=== PATIENT | male | born 1945 | race Caucasian/White ===

== ENCOUNTER 2023-04-20 08:57 | Inpatient (IN) ==
[2023-04-20] MEDS: Albuterol/Ipratropium NEB.SOL (2.5/0.5 MG) 3 ML NEB.SOLN INH ONE (09:58)
[2023-04-20 10:16] LABS: ABS Basophils 0.1 10^3/uL (0.0-0.1); ABS Lymphocytes 0.8 10^3/uL (1.0-4.8); ABS Monocytes 1.2 10^3/uL (0.0-1.1); ABS Neutrophils 17.8 10^3/uL (1.5-7.6); ABS Nucleated RBC 0.01 10^3/ul; Eosinophil % 0.1 %; Hematocrit 36.7 % (38-53); Hemoglobin 11.9 g/dL (13.2-16.3); Lymphocyte % 4.2 %; Mean Corpuscular Hemoglobin 26.6 pg (27-33); Mean Corpuscular Hgb Conc 32.5 g/dL (31-36); Mean Corpuscular Volume 81.8 fL (80-97); Mean Platelet Volume 7.3 fL (7.5-11.2); Platelet Count 530 10^3/uL (150-450); Red Blood Count 4.48 10^6/uL (4.06-5.63); Red Cell Distribution Width 14.5 % (12-17); White Blood Count 19.9 10^3/uL (3.6-10.2)
[2023-04-20] MEDS: NS 0.9% 1000 ml BAG 1,000 ML IV ONE ×2 (10:17→12:17)
[2023-04-20 10:35] LABS: Albumin 3.5 g/dL (3.2-5.2); Albumin/Globulin Ratio 0.8 (1-3); C Reactive Protein 183.86 mg/L (<8.01); Calcium 9.1 mg/dL (8.6-10.3); Creatinine, Serum 1.84 mg/dL (0.67-1.17); Globulin 4.3 g/dL (2-4); Magnesium 1.5 mg/dL (1.9-2.7); Phosphorus 4.6 mg/dL (2.5-5.0); Potassium 5.3 mmol/L (3.5-5.0); Total Bilirubin 0.4 mg/dL (0.2-1.0); Total Protein 7.8 g/dL (6.4-8.9); eGFR CKD-EPI 37.1 (>60)
[2023-04-20 11:34] LABS: High Sensitivity Troponin 1 Hr 110 pg/mL (<20)
[2023-04-20] MEDS: cefTRIAXone 1 gm/50 mL D5W 1 GM/50 ML BAG IV ONE (12:17)
[2023-04-20] MEDS ORDERED: Dextrose 50% Syringe 50 ml 25 GM/50 ML SYRINGE IV PUSH PRN ×2 (13:13→17:27)
[2023-04-20] MEDS: Heparin DRIP 25,000 UNITS BAG 25,000 UNITS/250 ML BAG IV SCH (13:28)
[2023-04-20] MEDS: Heparin 5000 UNITS/ML 1 mL VIAL IV SCH (13:30)
[2023-04-20] MEDS: Magnesium Sulfate 2 gm BAG 2 GM/50 ML BAG IVPB ONE (13:34)
[2023-04-20] MEDS ORDERED: Albuterol/Ipratropium NEB.SOL (2.5/0.5 MG) 3 ML NEB.SOLN INH SCH ×2 (14:00→18:00)
[2023-04-20 14:15] LABS: Creatinine, Serum 1.72 mg/dL (0.67-1.17); eGFR CKD-EPI 40.2 (>60)
[2023-04-20] MEDS: methylPREDNISolone SOD SUCC 125 mg 2 ML VIAL IV ONE (14:53)
[2023-04-20] MEDS: Azithromycin 500 mg/250 ml NS 500 MG/250 ML BAG IVPB SCH (14:55)
[2023-04-20] MEDS: Albuterol/Ipratropium NEB.SOL (2.5/0.5 MG) 3 ML NEB.SOLN INH PRN (15:23)
[2023-04-20] MEDS: Lactated Ringers 1000 ml BAG 1,000 ML IV ONE (15:59)
[2023-04-20] MEDS ORDERED: Sulfur Hexaflouride MICROSPHR 25 MG VIAL ONE (16:03)
[2023-04-20 16:17] LABS: PCO2 Arterial 34 mmHg (35-45); PO2 Arterial 63 mmHg (80-100)
[2023-04-20] MEDS ORDERED: Dabigatran 150 mg CAP (NF) PO SCH (21:00)
[2023-04-20] MEDS: methylPREDNISolone SOD SUCC 40 mg/ml 1 ml VIAL IV SCH (21:37)
[2023-04-20] MEDS: Triamcinolone 0.025% OINT 15 GM TUBE TOPICAL SCH (21:41)
[2023-04-20] MEDS: Albuterol/Ipratropium NEB.SOL (2.5/0.5 MG) 3 ML NEB.SOLN INH SCH (21:59)
[2023-04-20] MEDS: Mometasone 220 MCG MDI INH SCH (21:59)
[2023-04-20 23:18] LABS: Urine Appearance Clear; Urine Bilirubin Negative (Negative); Urine Blood Trace (Negative); Urine Color Yellow; Urine Glucose Negative (Negative); Urine Ketones Negative (Negative); Urine Nitrite Negative (Negative); Urine Protein Negative (Negative); Urine Specific Gravity 1.016 (1.002-1.030); Urine Urobilinogen Negative (Negative)
[2023-04-20 23:24] LABS: Urine Bacteria 1+ /HPF (Absent); Urine Red Blood Cell 1+(3-5/hpf) /HPF (0-Trace); Urine White Blood Cell 2+(11-20/hpf) /HPF (0-Trace)
[2023-04-21 05:31] LABS: ABS Lymphocytes 0.7 10^3/uL (1.0-4.8); ABS Monocytes 0.4 10^3/uL (0.0-1.1); ABS Neutrophils 13.8 10^3/uL (1.5-7.6); ABS Nucleated RBC 0.01 10^3/ul; Hematocrit 31.4 % (38-53); Hemoglobin 10.1 g/dL (13.2-16.3); Lymphocyte % 4.7 %; Mean Corpuscular Hemoglobin 26.3 pg (27-33); Mean Corpuscular Hgb Conc 32.2 g/dL (31-36); Mean Corpuscular Volume 81.8 fL (80-97); Mean Platelet Volume 7.5 fL (7.5-11.2); Platelet Count 437 10^3/uL (150-450); Red Blood Count 3.84 10^6/uL (4.06-5.63); Red Cell Distribution Width 14.7 % (12-17); White Blood Count 14.9 10^3/uL (3.6-10.2)
[2023-04-21 05:46] LABS: Calcium 8.1 mg/dL (8.6-10.3); Creatinine, Serum 1.41 mg/dL (0.67-1.17); Potassium 4.9 mmol/L (3.5-5.0)
[2023-04-21] MEDS ORDERED: cefTRIAXone 1 gm/50 mL D5W 1 GM/50 ML BAG IV SCH (12:15)
[2023-04-21] MEDS: cefTRIAXone 1 gm/50 mL D5W 1 GM/50 ML BAG IV SCH (12:42)
[2023-04-21] MEDS: Azithromycin 500 mg/250 ml NS 500 MG/250 ML BAG IVPB SCH (13:27)
[2023-04-22 06:07] LABS: Hematocrit 30.9 % (38-53); Hemoglobin 10.1 g/dL (13.2-16.3); Mean Corpuscular Hemoglobin 26.9 pg (27-33); Mean Corpuscular Hgb Conc 32.8 g/dL (31-36); Mean Platelet Volume 7.6 fL (7.5-11.2); Platelet Count 459 10^3/uL (150-450); Red Blood Count 3.76 10^6/uL (4.06-5.63); Red Cell Distribution Width 14.9 % (12-17); White Blood Count 20.5 10^3/uL (3.6-10.2)
[2023-04-22 06:24] LABS: Calcium 8.2 mg/dL (8.6-10.3); Creatinine, Serum 0.97 mg/dL (0.67-1.17); Potassium 5.3 mmol/L (3.5-5.0); eGFR CKD-EPI 79.9 (>60)
[2023-04-22 07:48] LABS: ABS Lymphocytes 0.8 10^3/uL (1.0-4.8); ABS Monocytes 1.1 10^3/uL (0.0-1.1); ABS Neutrophils 18.6 10^3/uL (1.5-7.6); ABS Nucleated RBC 0.02 10^3/ul; Lymphocyte % 3.9 %; Nucleated Red Blood Cells % 0.1 %/100WBC (0.0-0.8); Polychromasia 1+
[2023-04-22] MEDS: methylPREDNISolone SOD SUCC 40 mg/ml 1 ml VIAL IV SCH (10:23)
[2023-04-22] MEDS: Furosemide 40 mg/4 ml IV VIAL IV ONE (13:35)
[2023-04-22] MEDS ORDERED: Lorazepam PYXIS KEY PRN (14:22)
[2023-04-22] MEDS: CMC:Dabigatran 150 mg CAP (NF) PO SCH (14:27)
[2023-04-22] MEDS: LORazepam 2 mg VIAL 1 ml ONE (14:27)
[2023-04-22] MEDS: LORazepam 2 mg VIAL 1 ml IV PUSH ONE (14:27)
[2023-04-22] MEDS ORDERED: Sodium Bicarbonate 8.4% SYR 50 ml SYRINGE ONE (15:13)
[2023-04-22] MEDS ORDERED: Phenylephrine 40 mcg/mL 10mL (400mcg) SYRINGE ONE (15:13)
[2023-04-22] MEDS ORDERED: Atropine 0.1 MG/ML 10 ml SYR (1 mg) ONE (15:13)
[2023-04-22] MEDS ORDERED: Norepinephrine IV 1 MG/ML 4 ML VIAL ONE (15:13)
[2023-04-22] MEDS ORDERED: EPINEPHrine SYR 0.1MG/ML 10 ml SYRINGE IV ONE (15:13)
[2023-04-22 16:13] VITALS: BP 87/37
[2023-04-22] MEDS: Succinylcholine 200 mg VIAL 20 mg/ml 10 ml VIAL (200 mg) ONE (18:01)
[2023-04-22] MEDS: Rocuronium 50 mg VIAL 10 mg/ml 5 ml VIAL (50 mg) ONE (18:01)
[2023-04-22] MEDS: Norepinephrine 4 MG/250mL D5W 4,000 MCG/250 ML BAG IV ONE (18:02)
[2023-04-22] MEDS: EPINEPHrine SYR 0.1MG/ML 10 ml SYRINGE IV ONE (18:02)
[2023-04-22] MEDS: Phenylephrine 40 mcg/mL 10mL (400mcg) SYRINGE ONE (18:02)
[2023-04-22] MEDS: Atropine 0.1 MG/ML 10 ml SYR (1 mg) ONE (18:03)
== END 2023-04-22 19:41 | disposition expired | DRG 720 ==
LOC: EDHOLD 08:57 → ED 08:57 → ICU 17:05
PROVIDERS: ADMIT Hospitalist; ATTEND Hospitalist